=== PATIENT | male | born 1985 | race Two or more races ===

== ENCOUNTER 2021-08-02 11:47 | Emergency (ER) | payer OTHER ==
[2021-08-02 11:55] VITALS: BP 138/92
[2021-08-02] MEDS ORDERED: KETOROLAC 60 MG/2 ML VIAL IM STA (12:28)
[2021-08-02] MEDS ORDERED: IBUPROFEN 600 MG TABLET PO STA (12:43)
--- NOTE | 2021-08-02 12:45 | ED Physician Documentation ---
History of Present Illness - Stated complaint Stated Complaint: LT LEG INJ - Chief complaint Chief Complaint: Ext Problem - Additonal information Additional information: 35-year-old male presents emergency department for evaluation of pain on the medial side of his left posterior calf. He was playing basketball and felt a tearing in the calf. Some swelling since and difficulty bearing weight. No history of previous injury to this leg. Review of Systems Constitutional: reports: Reviewed and negative Nose: reports: Reviewed and negative Throat: reports: Reviewed and negative Cardiac: reports: Reviewed and negative Respiratory: reports: Reviewed and negative GI: reports: Reviewed and negative Musculoskeletal: reports: Extremity pain PD PAST MEDICAL HISTORY - Present Medications Home Medications: Ambulatory Orders Medication Instructions Recorded Confirmed Ibuprofen [Motrin] 600 mg PO Q6H PRN #30 tab 08/02/21 - Allergies Allergies/Adverse Reactions: Allergies Allergy/AdvReac Type Severity Reaction Status Date / Time No Known Drug Allergies Allergy Verified 08/02/21 11:55 PD ED PE EXPANDED - Extremities Extremities: Left leg (Mild swelling left posterior medial calf. No erythema. Negative Hinds test. Patient is able to dorsi and plantar flex ankle. Full range of motion of the knee.) Results - Vitals Vitals: Vital Signs - 24 hr 08/02/21 11:51 Temperature 36.5 C Heart Rate 76 Respiratory 16 Rate Blood Pressure 138/92 H O2 Saturation 98 Oxygen O2 Source Room air PD MEDICAL DECISION MAKING - ED course Complexity details: re-evaluated patient, considered differential, d/w patient ED course: 35-year-old male presents emergency department for evaluation of acute left posterior medial calf pain. He felt a tearing sensation when playing basketball. Exam is most consistent with a partial gastrocnemius tear. However he may also have a partial tendon rupture. He appears to have an intact Achilles tendon. Given lack of suspicion for acute fracture will defer imaging. Patient is placed in Vu wrap. Encourage crutches and Motrin. Discussed reasonable time for healing likely 2 to 4 weeks if not markedly better at 3 weeks would benefit from referral to orthopedics or physical therapy. Will need limited duty with the [employer]. Departure - Departure Disposition: 01 Home, Self Care Clinical Impression: Gastrocnemius muscle tear Qualifiers: Encounter type: initial encounter Laterality: left Qualified Code(s): S86.112A - Strain of other muscle(s) and tendon(s) of posterior muscle group at lower leg level, left leg, initial encounter Condition: Stable Record reviewed to determine appropriate education?: Yes Instructions: Gastrocnemius Muscle Tear Prescriptions: Ibuprofen [Motrin] 600 mg PO Q6H PRN #30 tab PRN Reason: Pain Comments: Hernán brar are seen today in the ER for pain in your left medial calf. I suspect that you have a torn gastrocnemius muscle. You may also have a partial tendon tear. You are placed in an Vu wrap and are given crutches. You are to be nonweightbearing on this leg. You do need to follow-up with [facility] on Wednesday. You likely need referral to orthopedics. If is simply a muscle tear this should begin to heal in 2 to 3 weeks time. If there is a partial tendon tear or an early tendon rupture that may require surgery. Because of this follow-up is going to be important. I do encourage you to take the ibuprofen with food 2-3 times a day. Return to the ER if you have significant swelling fevers redness or any concerns of infection.
== END 2021-08-02 13:00 | disposition home or self-care (01) ==
LOC: ED 11:47
DX: S86.122A Laceration of other muscle(s) and tendon(s) of posterior muscle group at lower leg level, left leg, initial encounter (principal); X58.XXXA Exposure to other specified factors, initial encounter; Y93.67 Activity, basketball
CPT/HCPCS: 99282; 99283; A9270

== ENCOUNTER 2023-06-29 10:45 | Outpatient (CLI) | payer OTHER ==
--- NOTE | 2023-06-29 18:28 | Ultrasound Report ---
PROCEDURE: Soft Tissue Head or Neck INDICATIONS: ENLARGED LYMPH NODES TECHNIQUE: Real-time scanning was performed of the thyroid gland, with image documentation. COMPARISON: None Findings and impression: In the left neck area of clinical concern, 2 prominent lymph nodes are seen measuring 0.4-0.5 cm in s hort axis, normal fatty hilar morphology is present. Similar appearing lymph nodes are seen on the contralateral side. No discrete other mass or fluid collection. Clinical followup is recommended. If there is new or worsening clinical concern, reimaging could be o btained. Reviewed by: Paulie Stringer MD on 06/29/2023 6:27 PM PST Approved by: Paulie Stringer MD on 06/29/2023 6:27 PM PST Station ID: [id number]
== END 2023-06-29 10:46 | disposition home or self-care (01) ==
LOC: DI 10:45
PROVIDERS: ATTEND Student in an Organized Health Care Education/Training Program
DX: R59.0 Localized enlarged lymph nodes (principal)